=== PATIENT | male | born 1970 | race Caucasian/White ===

== ENCOUNTER 2024-08-04 09:50 | Emergency (ER) | payer OTHER ==
[~2024-08-04] VITALS: Ht 172.7 cm; Wt 100.0 kg
[2024-08-04 09:52] VITALS: O2SAT 98
[2024-08-04 10:51] LABS: BASOPHILS % 0.5 % (0.0-2.0); EOSINOPHILS % 1.2 % (0.0-5.0); HEMATOCRIT. 44.4 % (42.0-52.0); HEMOGLOBIN. 15.3 g/dL (14.0-18.0); LYMPHOCYTES % 24.9 % (20.0-50.0); MEAN CORPUSCULAR HEMOGLOBIN 29.2 pg (28.0-32.0); MEAN CORPUSCULAR HGB CONC 34.5 g/dL (31.0-37.0); MEAN CORPUSCULAR VOLUME 84.8 fL (80.0-94.0); MEAN PLATELET VOLUME 9.7 fl (7.4-10.4); MONOCYTES % 7.4 % (2.0-8.0); PLATELET 271 x1000/uL (130-400); RED BLOOD CELL COUNT 5.24 mill/uL (4.7-6.1); RED CELL DISTRIBUTION WIDTH 12.9 % (11.6-14.6); WHITE BLOOD COUNT 7.2 x1000/uL (4.5-11.0)
[2024-08-04] MEDS: SODIUM CHLORIDE 0.9% 1,000 ML IV ONE (10:58)
[2024-08-04 11:05] LABS: CHLORIDE 105 mEq/L (98-107); SODIUM 136 mEq/L (136-145)
[2024-08-04 11:06] LABS: CARBON DIOXIDE 24 mEq/L (21-32)
[2024-08-04 11:07] LABS: CALCIUM 9.4 mg/dL (8.7-10.4)
[2024-08-04 11:11] LABS: CREATININE 0.9 mg/dL (0.6-1.3); UREA NITROGEN BLOOD 15 mg/dL (9-23)
[2024-08-04 11:20] LABS: GLUCOSE 452 mg/dL (70-105)
[2024-08-04] MEDS ORDERED: TOPUD PO (11:29)
[2024-08-04] MEDS: KETOROLAC 30MG/ML VIAL IV ONE (11:41)
[2024-08-04] MEDS: ACETAMINOPHEN 325MG TABLET PO ONE (11:42)
[2024-08-04 11:46] VITALS: BP 188/81; PULSE 77; RESP 15; TEMP 36.78072; O2SAT 98
== END 2024-08-04 11:58 | disposition home or self-care (01) ==
LOC: ER 10:22
DX: E11.65 Type 2 diabetes mellitus with hyperglycemia (principal); E78.00 Pure hypercholesterolemia, unspecified; I10 Essential (primary) hypertension; M54.9 Dorsalgia, unspecified; Z88.8 Allergy status to other drugs, medicaments and biological substances
CPT/HCPCS: 80048; 85025; 36415; 96361; 96374; 99283; J1885; J7030; Z7610 ×3